=== PATIENT | female | born 1995 | race African-American/Black ===

== ENCOUNTER 2016-07-20 02:44 | Inpatient (IN) ==
[2016-07-20] MEDS ORDERED: SODIUM CHLORIDE 0.9% 1,000 ML IV STA (02:53)
--- NOTE | 2016-07-20 02:58 | Emergency Department Note ---
Arrival - Arrival Chief Complaint: Overdose ED Nursing Triage Note: C/O Took 9 Tylenol #3 at 0145 because she was angry in an attempt to harm herself. Pt reports taking an overdose of medication in the past. Pt is 39 weeks and 6 days gestation- Is due to be induced on Sunday. Pt is AB2 Mode of Arrival: Stretcher Limitations: No Limitations Source: Patient Time Seen by Provider: 07/20/16 02:53 - History of Present Illness HPI Narrative: This 21-year-old black female with a term due for to have next week presents once again having taken overdose of a Tylenol product. This time she took 9 Tylenol 3's. It would seem she is taking these more out of anger towards her significant other than out of I does desire to kill herself. Her significant begin other has alienated her from her 2 other children by him, 4-year-old 1-year-old. She is concerned that the same will happen with this next delivery next week. She has no other complaints. Onset (ago): hour(s) (Patient presents 1 hour post incident) Date of Last Menstrual Period: MONICA July 28 2016 Allergies/Adverse Reactions: Allergies Allergy/AdvReac Type Severity Reaction Status Date / Time No Known Allergies Allergy Verified 06/21/16 17:49 Home Medications: Home Medications Medication Instructions Recorded Confirmed Type No Known Home Medications [No 06/04/16 07/20/16 History Known Home Medications] Review of System - Review of System 12 point system: reviewed and no additional remarkable complaints except as stated - Review of System Constitutional: Present: as per HPI Psychiatric: Present: as per HPI Medical,Surgical,& Family Hx - Medical History Cardio: History of: Hypertension (CHRONIC.) Neurology: History of: Seizures (2010) Genitourinary: History of: Problems (miscarriage of twins) Hematology: No history of: Blood Transfusion Reaction Other: No history of: Anesthesia Reactions, Anaphylaxis, Cancer, Eczema, HIV - Surgical History Abdominal Surgeries: Patient denies: Abdominal Surgery Reproductive Surgeries: Surgical HX of;: Section Patient denies;: Hysterectomy, Tubal Ligation - Family History Family History: Reports;: Family Heart Disease (UNCLE- OPEN HEART SURGERY), Family Hypertension (MOM, DAD, UNCLE, AUNT) Denies;: Family Anesthesia Reaction, Family Cancer, Family Diabetes, Family Psychiatric Problems, Family Stroke - Social History Smoking Status: Never smoker Frequency of Alcohol Use: None Type of Drug Use: None Exam Physical Examination: GENERAL: Well developed, well nourished term black female in no acute distress. HEENT: Normocephalic. No trauma. Moist mucous membranes. EOMI. PERRLA. ENT NML NECK: Supple. No adenopathy. CARDIAC: Regular. No murmurs. Heart rate 80 CHEST: Clear to auscultation. No respiratory distress. O2 sat 90% ABDOMEN: Soft. Nontender. With full pelvis of term . Distant sounds bowel sounds. EXTREMITIES: No trauma. Normal ROM. No pedal edema. SKIN: No diaphoresis. No rash. NEURO: Alert. No focal deficits. Vital Signs: Vital Signs Temperature 98.2 F 07/20/16 02:46 Pulse Rate 88 07/20/16 02:46 Respiratory Rate 16 07/20/16 02:46 Blood Pressure 135/86 07/20/16 02:46 O2 Sat by Pulse Oximetry 100 07/20/16 02:46 Course - Reevaluation(s) Reevaluation #1: Advised need for hospitalization for observation. - Consultations Consultation #1: Discussed with Dr. Tejeda who will admit for further evaluation treatment peer Results - Labs CBC & BMP: 07/20/16 02:50 07/20/16 02:50 Labs: I have reviewed the laboratory and noted the low hematocrit, low potassium, and therapeutic acetaminophen level. - Impressions EKG sinus rhythm at 90 with normal MT interval and QRS duration. Normal ST segments. Normal EKG. Disposition Clinical Impression: Tylenol 3 overdose, Term Case discussed with: patient Disposition: Still a Patient Condition: Stable Time of Disposition: 04:07
[2016-07-20 03:00] LABS: Basophils % 0.1 % (0.0-0.8); Eosinophils # 0.1 10*3/uL (0.0-0.87); Eosinophils % 0.7 % (0.00-10.9); Hematocrit 29.3 VOL% (35.7-47.0); Hemoglobin 10.4 GM/DL (12.0-16.0); Immature Granulocytes % 0.7 %; Immature Granulocytes Absolute 0.08 #; Lymphocytes # 1.9 10*3/uL (1.4-4.0); Lymphocytes % 17.2 % (21.3-54.2); Mean Corpuscular HGB Conc 35.5 GM/DL (32-36); Mean Corpuscular Hemoglobin 30 PG (27-34); Mean Platelet Volume 11.1 FL (9.6-12.0); Monocytes # 0.6 10*3/uL (0.11-0.8); Monocytes % 5.4 % (1.7-12.7); Neutrophils # 8.4 10*3/uL (1.4-7.4); Neutrophils % 75.9 % (38.7-73.9); Platelet Count 151 T/CUMM (130-400); Red Blood Count 3.49 MC/CUMM (3.8-5.5)
[2016-07-20 03:17] LABS: PT Patient Result 10.4 SECS; Partial Thromboplastin Time 24.3 SECS (0-40)
[2016-07-20 03:21] LABS: Alanine Aminotransferase 9 U/L (13-56); Albumin 3.1 G/DL (3.4-5.0); Alkaline Phosphatase 196 U/L (45-117); Aspartate Amino Transferase 11 U/L (0-37); Bilirubin,Total < 0.39 MG/DL (0.2-1.0); Blood Urea Nitrogen 4 MG/DL (7-18); Calcium 8.5 MG/DL (8.5-10.1); Glucose 99 MG/DL (74-106); Osmolality,Calculated 275.4 MOS/KG (273-304); Potassium 3.3 MMOL/L (3.5-5.1); Sodium 140 MMOL/L (136-145); Total Protein 6.6 G/DL (6.4-8.3)
[2016-07-20 03:33] LABS: Apearance,Urine Slightly Hazy (Clear); Bacteria,Urine Few /HPF (Few); Bilirubin,Urine Negative (Negative); Blood, Urine Negative (Negative); Glucose,Urine (UA) Negative (Negative); Ketones,Urine 5 mg/dL (Negative); Nitrite,Urine Negative (Negative); Protein,Urine Negative; RBC,Urine 6 /HPF (0-4); Squamous Epithelial Cell,Urine Occasional /HPF (0-10); Urine Color Yellow (Yellow); Urine Specific Gravity 1.005 (1.001-1.035); Urine Urobilinogen < 2.0 EU/DL (0.2-1.0); WBC,Urine 103 /HPF (0-6)
[2016-07-20 03:45] LABS: Barbiturates Screen,Urine Negative (Negative); Benzodiazepines Screen,Urine Negative (Negative); Cannabinoid Screen,Urine Negative (Negative); Opiate Screen,Urine Positive (Negative); Phencyclidine Screen,Urine Negative (Negative)
[2016-07-20] MEDS ORDERED: POTASSIUM BICARB EFFERVESCENT 25 MEQ TABLET PO ONE ×2 (03:49→05:34)
[2016-07-20] MEDS ORDERED: AMOXICILLIN 500 MG CAPSULE PO STA (03:49)
[2016-07-20] MEDS ORDERED: LACTATED RINGERS 1,000 ML IV SCH (07:00)
--- NOTE | 2016-07-20 07:54 | Ultrasound Report ---
US OB biophys profile Indication: Tylenol overdose. Comparison: None. Technique: Using transcutaneous probe, routine biophysical profile was performed. Ultrasound images were captured and stored. Biophysical variables including breathing, gross body movements, tone, and qualitative amniotic fluid volume scored. Findings: Each of the above physical variables were graded at +2 for a total of +8. The fetus lies in vertex position. Heart activity is present with a heart rate of 140 beats per minute. The amniotic fluid index is 12.54cm. Impression: 1. biophysical profile score 8; normal with low risk for chronic asphyxia. 07/20/2016 7:51 AM PROCEDURE INTERPRETED AT [facility] DEPARTMENT OF RADIOLOGY Final Report Signed by: Dr. Buzz Silver
--- NOTE | 2016-07-20 07:56 | Ultrasound Report ---
US OB >= 14 weeks fetus Indication: Tylenol overdose Comparison: biophysical profile performed same date no other ovary ultrasounds are available for comparison from this gestation. Technique: Using a transabdominal probe, multiple grayscale, color Doppler, and spectral Doppler images of the uterus and bilateral ovaries were captured and stored. Findings: Single vertex fetus is demonstrated. heart rate is 124 bpm. Amniotic fluid index is 10.8 cm. Placenta lies posteriorly. Measurements of biparietal diameter 36 weeks 1 day, head circumference 37 weeks 0 days, abdominal circumference 34 weeks 6 days, and femur length 36 weeks 4 days results in estimated composite gestational age of 36 weeks 1 day. Estimated weight is 2741 g with growth percentile 6.2%. Ratios appear within normal limits. Maternal ovaries are not identified. Impression: 1. Single fetus is present as detailed. 07/20/2016 7:52 AM PROCEDURE INTERPRETED AT [facility] DEPARTMENT OF RADIOLOGY Final Report Signed by: Dr. Buzz Silver
--- NOTE | 2016-07-20 09:44 | OB/GYN Progress Note ---
Assessment and Plan (1) Term Status: Acute Current Visit: Yes (2) First known suicide attempt Status: Acute Assessment and plan: Suicide watch Current Visit: Yes HAND ZIPPER TRIMMER - PN: Subj Interval history: Stable at present. Patient states that she was sad because she does not have her son at this time. She states that the father the baby has legal custody of her child and does not allow her to see him as she desires. The patient states that the baby will be 1-year-old on August 15 and she started thinking about all tthat and it made her sad and therefore she took the overdose. Exam HAND ZIPPER TRIMMER - Constitutional Vitals: Vital Signs Temp Pulse Pulse Resp BP BP Pulse Ox 07/20/16 05:45 97.0 F L 65 20 141/90 07/20/16 05:15 65 20 112/68 100 07/20/16 05:00 74 18 131/68 99 07/20/16 04:30 81 18 127/62 99 07/20/16 04:00 75 16 116/68 98 07/20/16 03:30 84 20 111/66 100 07/20/16 03:00 83 18 127/77 100 07/20/16 02:46 98.2 F 88 16 135/86 100 Pulse Ox 07/20/16 05:45 100 07/20/16 05:15 07/20/16 05:00 07/20/16 04:30 07/20/16 04:00 07/20/16 03:30 07/20/16 03:00 07/20/16 02:46 - Antepartum / Post Antepartum Exam Cervix - Dilatation: FT Breast: bilateral: normal Abdomen obstetrics: Present: bowel sounds normal Vagina: Present: normal moisture Uterus exam: Present: enlarged Anus/Rectum: Present: normal perianal skin - Head Head exam: Present: normocephalic - Respiratory Respiratory exam: Present: clear to auscultation bilaterally - Cardiovascular Cardiovascular exam: Present: regular rate and rhythm - GI/Abdominal GI/Abdominal exam: Present: normal bowel sounds, soft - Extremities Exam Extremities exam: Present: normal inspection - Back Exam Back exam: Present: normal inspection - Neurological Exam Neurological exam: Present: alert, oriented X3 - Psychiatric Psychiatric exam: Present: normal affect, normal mood - Skin Skin exam: Present: normal color, warm Results - Labs CBC & BMP: 07/20/16 02:50 07/20/16 02:50
--- NOTE | 2016-07-20 09:55 | EKG Report ---
Stationary ECG Study [facility] ER Test Date: 07/20/2016 2:57:47 AM Pat Name: JEFRY MCKINLEY Department: Room: 157 Gender: F Nuclear Technologist: [place] : 1995 Requested by: Maikel Villafana Order Number: [id number] Reading MD: JASMEET VÁSQUEZ Intervals [place] Rate: 91 P: 72 IA: 174 QRS: 28 QRSD: 77 T: 11 QT: 332 QTc: 381 Interpretive Statements SINUS RHYTHM Electronically Signed On 07-21-16 08:47:40 CDT by JASMEET VÁSQUEZ [email or web address]
[2016-07-20] MEDS: AMOXICILLIN 500 MG CAPSULE PO SCH ×3 (10:41→20:40)
[2016-07-21 06:56] LABS: Basophils % 0.2 % (0.0-0.8); Eosinophils # 0.1 10*3/uL (0.0-0.87); Eosinophils % 1.3 % (0.00-10.9); Hematocrit 27.2 VOL% (35.7-47.0); Hemoglobin 9.4 GM/DL (12.0-16.0); Immature Granulocytes % 0.5 %; Immature Granulocytes Absolute 0.04 #; Lymphocytes # 1.6 10*3/uL (1.4-4.0); Lymphocytes % 19.4 % (21.3-54.2); Mean Corpuscular HGB Conc 34.6 GM/DL (32-36); Mean Corpuscular Hemoglobin 29 PG (27-34); Mean Corpuscular Volume 84.7 FL (87-102); Mean Platelet Volume 11.7 FL (9.6-12.0); Monocytes # 0.6 10*3/uL (0.11-0.8); Monocytes % 7.6 % (1.7-12.7); Neutrophils # 5.8 10*3/uL (1.4-7.4); Platelet Count 149 T/CUMM (130-400); Red Blood Count 3.21 MC/CUMM (3.8-5.5); Red Cell Distribution Width 14.1 % (9.3-17.3); White Blood Count 8.2 T/CUMM (4-12)
[2016-07-21] MEDS: AMOXICILLIN 500 MG CAPSULE PO SCH ×3 (09:18→21:09)
--- NOTE | 2016-07-21 14:24 | Progress Note ---
Family Medicine PN Sub Interval history: Second hospitalization day. Patient is in great spirits, alert, no complaints of shortness of breath chest pain palpitations, and no suicidal thoughts. Abdomen soft positive heart tones NST is reactive Extremities well within normal limits neurologic grossly intact Assessment plan we will observe over the weekend and possible possibly plan on her delivery on Sunday the fourth. Exam (Progress Note) - Constitutional Vitals: Period Temp Pulse Resp BP Sys/Betancourt Pulse Ox Last 24 Hr 97.8 F-98.9 F 66-76 18-20 121-133/71-76 96-99 Results - Labs CBC & BMP: 07/21/16 06:24 07/20/16 02:50
[2016-07-21] MEDS: ONDANSETRON 4 MG TABLET PO PRN ×2 (20:01→23:56)
[2016-07-22] MEDS ORDERED: LACTATED RINGERS 500 ML IV ONE (02:15)
[2016-07-22] MEDS: LACTATED RINGERS 1,000 ML IV SCH (02:45)
[2016-07-22] MEDS ORDERED: MEPERIDINE 50 MG/1 ML VIAL ONE (02:54)
[2016-07-22] MEDS ORDERED: MEPERIDINE 50 MG/1 ML VIAL IV ONE (03:00)
[2016-07-22] MEDS: ONDANSETRON 4 MG/2 ML VIAL IV PRN (03:05)
[2016-07-22] MEDS: AMOXICILLIN 500 MG CAPSULE PO SCH ×3 (09:45→21:13)
--- NOTE | 2016-07-22 11:40 | Progress Note ---
Family Medicine PN Sub Interval history: Third day in the hospital secondary to a failed suicide attempt. Patient is doing great spirits a lot better fetus is active cervix is has not changed. NSTs have been very reactive. We will plan on a repeat section on Sunday Exam (Progress Note) - Constitutional Vitals: Period Temp Pulse Resp BP Sys/Betancourt Pulse Ox Last 24 Hr 97.3 F-98.9 F 66-78 18-22 116-145/73-94 97-100 Results - Labs CBC & BMP: 07/21/16 06:24 07/20/16 02:50
[2016-07-23] MEDS: AMOXICILLIN 500 MG CAPSULE PO SCH ×3 (08:42→21:56)
--- NOTE | 2016-07-23 09:33 | OB/GYN Progress Note ---
Assessment and Plan (1) First known suicide attempt Status: Acute Current Visit: Yes (2) Previous section Status: Acute Assessment and plan: Pt stable this morning. Plan for repeat section in the morning Current Visit: No (3) Term Status: Acute Current Visit: Yes SENIOR PROJECT COORDINATOR - PN: Subj Interval history: Pt states that she feels ok this morning. Ready to be delivered. Happy that it is tomorrow. Exam SENIOR PROJECT COORDINATOR - Constitutional Vitals: Vital Signs Temp Pulse Resp BP Pulse Ox 07/23/16 08:00 98.5 F 61 18 122/83 100 07/23/16 06:00 18 07/23/16 04:00 97.7 F 68 20 123/78 99 07/23/16 00:00 97.7 F 62 20 133/76 98 07/22/16 19:40 97.7 F 67 20 129/75 96 07/22/16 15:48 97.7 F 79 18 127/78 99 07/22/16 11:54 97.6 F 66 18 111/60 100 General appearance: no acute distress - Head Head exam: Present: normal inspection, normocephalic - Eye Eye exam: Present: EOMI Pupils: Present: REILLY - GI/Abdominal GI/Abdominal exam: Present: other (Gravid. FHTs reactive) - Psychiatric Psychiatric exam: Present: normal affect, normal mood Results - Labs CBC & BMP: 07/21/16 06:24 07/20/16 02:50
[2016-07-23] MEDS ORDERED: MEPERIDINE 50 MG/1 ML VIAL IV ONE (20:03)
[2016-07-23] MEDS ORDERED: ZALEPLON 5 MG CAPSULE PO PRN (20:03)
[2016-07-23] MEDS: ONDANSETRON 4 MG/2 ML VIAL IV PRN (20:05)
[2016-07-23] MEDS: TERCONAZOLE 0.4% VAG CREAM 45 GM TUBE VAG SCH (21:56)
[2016-07-23] MEDS: ACETAMINOPHEN 325 MG TABLET PO PRN (23:40)
[2016-07-24] MEDS: LACTATED RINGERS 1,000 ML IV SCH ×5 (00:30→11:08)
[2016-07-24] MEDS: ACETAMINOPHEN 325 MG TABLET PO PRN (05:33)
[2016-07-24 06:16] LABS: Basophils % 0.1 % (0.0-0.8); Eosinophils # 0.1 10*3/uL (0.0-0.87); Hematocrit 26.9 VOL% (35.7-47.0); Hemoglobin 9.3 GM/DL (12.0-16.0); Immature Granulocytes % 1.1 %; Immature Granulocytes Absolute 0.12 #; Lymphocytes # 1.6 10*3/uL (1.4-4.0); Lymphocytes % 15.2 % (21.3-54.2); Mean Corpuscular HGB Conc 34.6 GM/DL (32-36); Mean Corpuscular Hemoglobin 29 PG (27-34); Mean Corpuscular Volume 85.1 FL (87-102); Mean Platelet Volume 11.6 FL (9.6-12.0); Monocytes # 0.8 10*3/uL (0.11-0.8); Monocytes % 7.7 % (1.7-12.7); Neutrophils # 7.8 10*3/uL (1.4-7.4); Neutrophils % 74.9 % (38.7-73.9); Platelet Count 143 T/CUMM (130-400); Red Blood Count 3.16 MC/CUMM (3.8-5.5); Red Cell Distribution Width 13.8 % (9.3-17.3); White Blood Count 10.5 T/CUMM (4-12)
[2016-07-24 06:39] LABS: Calcium 8.3 MG/DL (8.5-10.1); Osmolality,Calculated 273.4 MOS/KG (273-304); Potassium 3.8 MMOL/L (3.5-5.1)
[2016-07-24] MEDS ORDERED: OXYTOCIN 10 UNIT/ML VIAL IM PRN (08:51)
[2016-07-24] MEDS ORDERED: OXYTOCIN/LR 30 UNIT/1,000 ML BAG IV PRN (08:51)
[2016-07-24] MEDS ORDERED: ceFAZolin 2,000 MG in PREMIX 1 EACH IV PRN (08:51)
[2016-07-24] MEDS ORDERED: FAMOTIDINE 20 MG/2 ML VIAL IV ONE (09:01)
[2016-07-24] MEDS ORDERED: CITRIC ACID/SODIUM CITRATE 30 ML UDCUP PO ONE (09:01)
[2016-07-24] MEDS ORDERED: PHENYLEPHRINE 1 MG/10 ML SYRINGE IV ONE (09:25)
[2016-07-24] MEDS ORDERED: ONDANSETRON 4 MG/2 ML VIAL ONE (09:25)
[2016-07-24] MEDS ORDERED: OXYTOCIN/LR 20 UNIT/1,000 ML BAG IV ONE ×2 (10:52→13:25)
[2016-07-24] MEDS ORDERED: MORPHINE 10 MG/10 ML VIAL ONE (10:53)
[2016-07-24] MEDS ORDERED: LACTATED RINGERS 1,000 ML IV ONE (10:53)
--- NOTE | 2016-07-24 10:54 | Operative Note ---
Date of procedure: 07/24/16 Procedure: Preoperative diagnosis: Repeat section, attempted suicide, 39+ weeks Postoperative diagnosis: Same Anesthesia:[] Regional anesthesia Estimated blood loss: [] 300 cc Surgeon: Dr. Tejeda Findings: [] Male infant, Apgars are pending, weight is pending, cord blood and cord gas was obtained, delivery time is also pending. Complications: No complication came out screaming ,yelling ,believe Apgars to be greater than 8 at 1 minute and 9 at 5 minutes Procedure: Low transverse section The patient was taken to the operating suite heart tones were obtained prior to and after regional anesthesia was obtained. She was placed in supine position her abdomen was prepped and draped in usual manner for major abdominal surgery. Through an abdominal incision the skin, subcutaneous, fascial layer and peritoneal the abdomen was entered. The bladder flap was created and a low transverse incision was made.. Fluid was clear and normal amount X, Apgars, the placenta was delivered and sent to lab for further evaluation. Injected with intrauterine Pitocin. The first layer of the uterus was closed with #1 Vicryl in a continuous locking manner. Close to imbricate the first layer with #1 Vicryl. The peritoneum was approximated with #2-0 Vicryl.[] All the last sponges and instruments were accounted for -2.) #2-0 Vicryl. Fascia was approximated with #0-0 Maxon.. The skin was approximated with daniella. She tolerated procedure well and was taken to recovery room in stable condition. Surgeon / Physician: Mina Tejeda Results - Labs CBC & BMP: 07/24/16 04:26 07/24/16 04:26 Discharge Plan - Discharge Medications No Action No Known Home Medications [No Known Home Medications] - Follow Up or Referral - Forms/Instructions
--- NOTE | 2016-07-24 10:58 | Anesthesia Post-Op ---
Anesthesia Post OP - Post Ansesthetic Evaluation Patient seen in post op: Yes Resp: within normal limits CV: within normal limits Mental: within normal limits Temp: within normal limits [id number]-[id number]-Dyfbvpaed: within normal limits Nausea and Vomiting: within normal limits Pain: within normal limits
[2016-07-24 11:03] LABS: Cord Venous Blood HCO3 21.4 MMOL/L; Cord Venous Blood PCO2 52.5 MMHG; Cord Venous Blood PO2 21.9
[2016-07-24 11:06] LABS: Apearance,Urine CLEAR (Clear); Bilirubin,Urine Negative (Negative); Blood, Urine Small mg/dL (Negative); Glucose,Urine (UA) Negative (Negative); Hyaline Casts,Urine 1 /LPF (0-3); Ketones,Urine Negative (Negative); Nitrite,Urine Negative (Negative); Protein,Urine Negative; RBC,Urine <1 /HPF (0-4); Squamous Epithelial Cell,Urine Occasional /HPF (0-10); Urine Color Colorless (Yellow); Urine Specific Gravity 1.004 (1.001-1.035); Urine Urobilinogen < 2.0 EU/DL (0.2-1.0); WBC,Urine 2 /HPF (0-6)
[2016-07-24] MEDS: AMOXICILLIN 500 MG CAPSULE PO SCH ×2 (11:06→14:26)
[2016-07-24] MEDS ORDERED: RHO(D) IMMUNE GLOBULIN 300 MCG SYRINGE IM ONE (13:25)
[2016-07-24] MEDS ORDERED: SIMETHICONE CHEW 80 MG TABLET PO PRN (13:25)
[2016-07-24] MEDS: ONDANSETRON 4 MG/2 ML VIAL IV PRN (14:10)
[2016-07-24] MEDS ORDERED: diphenhydrAMINE 50 MG/1 ML VIAL ONE (16:31)
[2016-07-24] MEDS ORDERED: PROMETHAZINE 25 MG/1 ML VIAL IM PRN (16:36)
[2016-07-24] MEDS ORDERED: diphenhydrAMINE 50 MG/1 ML VIAL IV PRN (16:37)
[2016-07-24 19:54] LABS: Hematocrit 26.9 VOL% (35.7-47.0); Hemoglobin 9.2 GM/DL (12.0-16.0)
[2016-07-24] MEDS: TERCONAZOLE 0.4% VAG CREAM 45 GM TUBE VAG SCH (22:40)
[2016-07-25] MEDS: LACTATED RINGERS 1,000 ML IV SCH
[2016-07-25] MEDS: DOCUSATE SODIUM 100 MG CAPSULE PO SCH ×3 (00:38→21:15)
[2016-07-25 06:12] LABS: Basophils % 0.2 % (0.0-0.8); Eosinophils # 0.1 10*3/uL (0.0-0.87); Eosinophils % 0.5 % (0.00-10.9); Hematocrit 25.6 VOL% (35.7-47.0); Hemoglobin 8.8 GM/DL (12.0-16.0); Immature Granulocytes % 0.9 %; Lymphocytes # 1.1 10*3/uL (1.4-4.0); Lymphocytes % 9.5 % (21.3-54.2); Mean Corpuscular HGB Conc 34.4 GM/DL (32-36); Mean Corpuscular Hemoglobin 29 PG (27-34); Mean Platelet Volume 12.1 FL (9.6-12.0); Monocytes % 8.4 % (1.7-12.7); Neutrophils # 9.5 10*3/uL (1.4-7.4); Neutrophils % 80.5 % (38.7-73.9); Platelet Count 135 T/CUMM (130-400); Red Blood Count 3.01 MC/CUMM (3.8-5.5); White Blood Count 11.7 T/CUMM (4-12)
[2016-07-25] MEDS: MULTIVITAMIN (PRENATAL) TABLET PO SCH (09:00)
[2016-07-25] MEDS: FERROUS SULFATE 325 MG TABLET PO SCH ×3 (09:00→21:15)
--- NOTE | 2016-07-25 10:11 | OB/GYN Progress Note ---
Assessment and Plan (1) Term Status: Acute Current Visit: Yes (2) First known suicide attempt Status: Acute Assessment and plan: Suicide watch Current Visit: Yes (3) Status post repeat low transverse section Status: Acute Assessment and plan: Initiate routine postop orders. Current Visit: Yes CORRECTIONAL CASE MANAGER - PN: Subj Interval history: Stable with no complaints. Bonding well with infant Exam CORRECTIONAL CASE MANAGER - Constitutional Vitals: Vital Signs Temp Pulse Resp BP Pulse Ox Pulse Ox 07/25/16 07:18 98.4 F 81 18 128/60 99 07/25/16 06:00 18 07/25/16 04:00 97.3 F L 74 18 122/62 100 07/25/16 00:00 98.7 F 75 18 125/71 99 07/24/16 20:00 97.7 F 66 18 137/77 100 07/24/16 16:30 68 18 131/85 98 07/24/16 15:30 97.7 F 62 18 128/76 98 07/24/16 14:30 61 20 128/70 98 07/24/16 14:00 62 20 127/76 99 07/24/16 13:30 97.4 F L 61 20 138/78 98 General appearance: normal weight, no acute distress - Antepartum / Post Post Exam Breast: bilateral: normal Abdomen obstetrics: Present: bowel sounds normal Uterus exam: Present: enlarged Adnexa: bilateral: normal - Gyencological / Post Surgical Post Surgical Exam Lungs: bilateral: normal Chest: Normal S1, Normal S2 Extremities CORRECTIONAL CASE MANAGER: Present: normal Abdomen obstetrics progress note: Present: normal appearance Incision OB: Present: normal, intact - Head Head exam: Present: normal inspection - Respiratory Respiratory exam: Present: clear to auscultation bilaterally - Cardiovascular Cardiovascular exam: Present: regular rate and rhythm - GI/Abdominal GI/Abdominal exam: Present: normal bowel sounds, soft - Extremities Exam Extremities exam: Present: normal inspection - Neurological Exam Neurological exam: Present: alert, oriented X3 - Psychiatric Psychiatric exam: Present: normal affect, normal mood - Skin Skin exam: Present: normal color, warm Results - Labs CBC & BMP: 07/25/16 04:47 07/24/16 04:26
[2016-07-25] MEDS: IBUPROFEN 800 MG TABLET PO PRN ×2 (11:10→23:30)
--- NOTE | 2016-07-25 13:23 | Pathology Report from [facility] ---
[facility] ACCESSION # : [id number] PATIENT NAME : Jefry Nevarez ORDERING DR : CATALINA VÁSQUEZ MD CLINICAL HX: IUP @ 39.3 wejackie - Suicide attempt with Tylenol #3 - Repeat C- Section POST-OP DX: Same SPECIMEN INFO: Placenta GROSS DESCRIPTION: Received fresh labeled JEFRY NEVAREZ & PLACENTA is a 408 gm placenta measuring 17.1 x 14.6 x 2.1 cm. The membranes are pink desir and translucent. The umbilical cord is pericentrally inserted, contains three vessels and measures 14.2 cm. The surface is blue dee. The maternal surface is hemorrhagic with moderately disrupted cotyledons and adherent clotted blood. Multiple scattered calcifications are present. Sectioning reveals an area of thick fibrin measuring up to 1 cm. Sections submitted A- membranes and cord, B- and maternal surfaces. DIAGNOSIS FOR JEFRY NEVAREZ: Three vessel umbilical cord.Unremarkable placental membranes.Third trimester placental chorionic villi with focal placental infarction. COLLECTED DATE: 07/24/2016 [facility] REPORT DATE: 07/25/2016 ELECTRONICALLY SIGNED BY: Everardo Galvan M.D. 07/25/2016 - 10:00:13 GERALDINE
[2016-07-25] MEDS ORDERED: HYDROCORTISONE 2.5% RECTAL CREAM 30 GM TUBE TOP PRN (15:46)
[2016-07-25] MEDS ORDERED: WITCH HAZEL PADS 100/JAR TOP PRN (15:46)
[2016-07-25] MEDS: MAGNESIUM HYDROXIDE SUSP 30 ML UDCUP PO PRN ×2 (15:54→22:21)
[2016-07-25] MEDS: TERCONAZOLE 0.4% VAG CREAM 45 GM TUBE VAG SCH (22:00)
[2016-07-26] MEDS: DOCUSATE SODIUM 100 MG CAPSULE PO SCH (08:40)
[2016-07-26] MEDS: FERROUS SULFATE 325 MG TABLET PO SCH ×2 (08:40→16:40)
[2016-07-26 11:47] VITALS: BP 140/76
[2016-07-26] MEDS: MULTIVITAMIN (PRENATAL) TABLET PO SCH (12:27)
[2016-07-26] MEDS: IBUPROFEN 800 MG TABLET PO PRN (14:01)
--- NOTE | 2016-07-26 14:57 | Discharge Summary ---
Hospital Course - Hospital Course Hospital Course: The patient presented to the labor department complaining of drug overdose intentionally. The patient stated the reason for her incident was the fact that she was tired of being , she was sad because of some family issues , but patient denied a true attempt to end her life. Social service was consulted regarding the above. The patient subsequently had a repeat section at 39 weeks and delivered a viable with no complications. She has followed a normal postoperative course and she is doing well. Her mood is good she is bonding well with her she states that she is happy now that the is over. The patient desires to go home. Her incision is well approximated without signs of infection. She is voiding without difficulty. Her bowel sounds are positive and she has had normal bowel movement. Her vital signs and lab values are stable. Bowel sounds are positive she has had a normal bowel movement. She will be discharged to home with social service consult and a follow-up appointment in our office. Diagnosis - Discharge Diagnosis (1) Term Status: Acute (2) First known suicide attempt Status: Acute (3) Status post repeat low transverse section Status: Acute Specialty Discharge - Follow Up or Referrals Follow up with: Mina Tejeda MD [Physician] - 08/14/16 10:30 am Discharge Plan - Discharge Data Disposition: Disch To Home/Self Care Condition at Discharge: Stable Discharge Diet: advance to your usual diet Activity: resume usual activities as tolerated Hygiene: may shower Weight Bearing at Discharge: partial weight bearing Driving: no restrictions Contact your physician if you experience:: fever over 101, pain uncontrolled by pain medications - Discharge Medications New Ferrous Sulfate Tab [Feosol Original Tab] 325 mg PO TID #60 tablet Ibuprofen Tab [Motrin Tab] 800 mg PO Q8H PRN #30 tablet PRN Reason: Pain Severe (8-10) HYDROcodone/ACETAMIN 5-325 [[place] 5-325] 2 tablet PO Q6H PRN #30 tablet PRN Reason: Pain Severe (8-10) No Action No Known Home Medications [No Known Home Medications] - Follow Up or Referral Follow Up: Mina Tejeda MD [Physician] - 08/14/16 10:30 am - Forms/Instructions Instructions: Section (DC), Perineal Care (DC), Bleeding (DC) Exam - Constitutional Vitals: Period Temp Pulse Resp BP Sys/Betancourt Pulse Ox Last 24 Hr 96.9 F-98.6 F 69-88 18-20 115-153/69-92 95-99 General appearance: no acute distress - Respiratory Respiratory exam: Present: clear to auscultation bilaterally - Cardiovascular Cardiovascular exam: Present: regular rate and rhythm - GI/Abdominal GI/Abdominal exam: Present: normal bowel sounds, soft - Extremities Exam Extremities exam: Present: normal inspection - Back Exam Back exam: Present: normal inspection - Neurological Exam Neurological exam: Present: alert, oriented X3 - Psychiatric Psychiatric exam: Present: normal affect, normal mood - Skin Skin exam: Present: normal color, warm DS: Provider Date of admission: 07/24/16 09:55 Primary care physician: . No PCP Attending physician on admission: Mina Tejdea MD Consults: 07/20/16 07:01 Consult to Case Mgmt/Social Srvs [CONS] Routine Reason for Case Mgmt/Social Srvs: Other Consult Comment: OVERDOSE ON TYLENOL #3 D/T BEING ANGRY AT SIGNIFICANT OTHER 07/24/16 09:01 Consult to Anesthesiology [CONS] Routine Consulting Provider: Reason for Anesthesiology: Pre-op Clearance 07/24/16 09:55 Consult to Anesthesiology [CONS] Routine Consulting Provider: Reason for Anesthesiology: Pre-op Clearance 07/24/16 13:25 Consult to Spectroscopist [CONS] Routine Consult Spectroscopist: Breast Feeding 07/24/16 17:26 Consult to Case Mgmt/Social Srvs [CONS] Routine Reason for Case Mgmt/Social Srvs: Other Consult Comment: pt delivered infant Discharging clinician: Kamla Vargas CNM Expected date of discharge: 07/26/16
[2016-07-26] MEDS ORDERED: DIPH/TET/ACEL PERT BOOSTER VACCINE 0.5 ML VIAL IM ONE ×2 (17:47→17:49)
== END 2016-07-26 19:05 | disposition home or self-care (01) | DRG 540 ==
LOC: N.ED 02:44 → INTOOBSV 04:07 → N.EDINP 04:07 → N.LD 05:12 → N.OB 06:42 → N.LD 07-24 07:20 → N.OB 07-24 13:30
PROVIDERS: ADMIT Obstetrics & Gynecology; ATTEND Obstetrics & Gynecology
PROC: LDCSECT (ICD-10-PCS; 2016-07-24 07:30)

== ENCOUNTER 2021-01-17 09:53 | Inpatient (IN) ==
[2021-01-17] MEDS ORDERED: ceFAZolin 2,000 MG/50 ML DUPLEX IV ONE (10:01)
[2021-01-17] MEDS ORDERED: FAMOTIDINE 20 MG/2 ML VIAL IV ONE (10:01)
[2021-01-17] MEDS ORDERED: CITRIC ACID/SODIUM CITRATE 30 ML UDCUP PO ONE (10:01)
[2021-01-17] MEDS ORDERED: OXYTOCIN 10 UNIT/ML VIAL IM ONE (10:03)
[2021-01-17] MEDS ORDERED: OXYTOCIN/LR 30 UNIT/1,000 ML BAG IV ONE (10:04)
[2021-01-17] MEDS ORDERED: LACTATED RINGERS 1,000 ML IV ONE ×2 (10:09→14:03)
[2021-01-17] MEDS: LACTATED RINGERS 1,000 ML IV PRN ×2 (10:27→17:22)
[2021-01-17 11:02] LABS: Basophils % 0.2 % (0.0-0.8); Eosinophils # 0.2 10*3/uL (0.0-0.87); Eosinophils % 1.5 % (0.00-10.9); Hematocrit 28.6 VOL% (35.7-47.0); Hemoglobin 9.3 GM/DL (12.0-16.0); Immature Granulocytes % 0.6 %; Immature Granulocytes Absolute 0.07 #; Lymphocytes % 27.3 % (21.3-54.2); Mean Corpuscular HGB Conc 32.5 GM/DL (32-36); Mean Corpuscular Volume 85.6 FL (87-102); Mean Platelet Volume 10.4 FL (9.6-12.0); Monocytes % 6.9 % (1.7-12.7); Neutrophils % 63.5 % (38.7-73.9); Platelet Count 228 T/CUMM (130-400); Red Blood Count 3.34 MC/CUMM (3.8-5.5); Red Cell Distribution Width 14.4 % (9.3-17.3); White Blood Count 10.9 T/CUMM (4-12)
[2021-01-17] MEDS ORDERED: BUPIVACAINE SPINAL 0.75% 2 ML AMP SPINAL ONE (12:56)
[2021-01-17] MEDS ORDERED: ONDANSETRON 4 MG/2 ML VIAL ONE (12:57)
[2021-01-17] MEDS ORDERED: DEXAMETHASONE 4 MG/1 ML VIAL ONE (13:01)
[2021-01-17] MEDS ORDERED: PHENYLEPHRINE 1 MG/10 ML SYRINGE IV ONE (14:01)
[2021-01-17] MEDS ORDERED: ACETAMINOPHEN INJ 1,000 MG/100 ML VIAL IV ONE (14:16)
[2021-01-17] MEDS ORDERED: OXYTOCIN/LR 20 UNIT/1,000 ML BAG IV ONE (14:57)
[2021-01-17] MEDS ORDERED: ONDANSETRON 4 MG/2 ML VIAL IV PRN (14:57)
[2021-01-17] MEDS ORDERED: ACETAMINOPHEN 325 MG TABLET PO PRN (14:57)
[2021-01-17] MEDS ORDERED: SIMETHICONE CHEW 80 MG TABLET PO PRN (14:57)
[2021-01-17] MEDS ORDERED: RHO(D) IMMUNE GLOBULIN 300 MCG SYRINGE IM ONE (14:57)
[2021-01-17] MEDS ORDERED: LACTATED RINGERS 1,000 ML IV SCH (15:00)
[2021-01-17 15:01] LABS: Cord Arterial Blood HCO3 21.3 MMOL/L
[2021-01-17 15:04] LABS: Cord Venous Blood HCO3 21.8 MMOL/L; Cord Venous Blood PCO2 45.8 MMHG; Cord Venous Blood PO2 22.9
[2021-01-17 15:13] LABS: Bilirubin,Urine Negative (Negative); Blood, Urine Negative (Negative); Glucose,Urine (UA) Negative (Negative); Ketones,Urine 5 mg/dL (Negative); Mucus,Urine Occasional /LPF (Occasional); Nitrite,Urine Negative (Negative); Protein,Urine Negative; RBC,Urine 5 /HPF (0-4); Squamous Epithelial Cell,Urine Occasional /HPF (0-10); Urine Appearance CLEAR (Clear); Urine Color Yellow (Yellow); Urine Specific Gravity 1.014 (1.001-1.035); Urine Urobilinogen < 2.0 EU/DL (0.2-1.0)
[2021-01-17] MEDS ORDERED: PROMETHAZINE 25 MG/1 ML VIAL IM PRN (18:23)
[2021-01-17] MEDS ORDERED: PROMETHAZINE 25 MG/1 ML VIAL ONE (18:24)
[2021-01-17] MEDS ORDERED: ACETAMINOPHEN 500 MG TABLET PO SCH (20:00)
[2021-01-17] MEDS: DOCUSATE SODIUM 100 MG CAPSULE PO SCH (20:58)
[2021-01-17 21:45] LABS: Basophils % 0.1 % (0.0-0.8); Eosinophils % 0.1 % (0.00-10.9); Hematocrit 27.9 VOL% (35.7-47.0); Hemoglobin 9.3 GM/DL (12.0-16.0); Immature Granulocytes % 0.6 %; Immature Granulocytes Absolute 0.09 #; Lymphocytes # 1.6 10*3/uL (1.4-4.0); Lymphocytes % 10.6 % (21.3-54.2); Mean Corpuscular HGB Conc 33.3 GM/DL (32-36); Mean Corpuscular Volume 83.5 FL (87-102); Mean Platelet Volume 10.5 FL (9.6-12.0); Monocytes % 1.8 % (1.7-12.7); Neutrophils % 86.8 % (38.7-73.9); Platelet Count 213 T/CUMM (130-400); Red Blood Count 3.34 MC/CUMM (3.8-5.5); Red Cell Distribution Width 14.2 % (9.3-17.3)
[2021-01-18 05:25] LABS: Basophils % 0.1 % (0.0-0.8); Eosinophils % 0.1 % (0.00-10.9); Hematocrit 27.5 VOL% (35.7-47.0); Hemoglobin 8.9 GM/DL (12.0-16.0); Immature Granulocytes % 0.6 %; Immature Granulocytes Absolute 0.09 #; Lymphocytes # 2.5 10*3/uL (1.4-4.0); Lymphocytes % 17.9 % (21.3-54.2); Mean Corpuscular HGB Conc 32.4 GM/DL (32-36); Mean Corpuscular Volume 85.7 FL (87-102); Mean Platelet Volume 10.5 FL (9.6-12.0); Monocytes % 8.2 % (1.7-12.7); Neutrophils % 73.1 % (38.7-73.9); Platelet Count 197 T/CUMM (130-400); Red Blood Count 3.21 MC/CUMM (3.8-5.5); Red Cell Distribution Width 14.1 % (9.3-17.3); White Blood Count 14.1 T/CUMM (4-12)
[2021-01-18] MEDS: DOCUSATE SODIUM 100 MG CAPSULE PO SCH ×2 (10:18→21:08)
[2021-01-18] MEDS: MULTIVITAMIN (PRENATAL) TABLET PO SCH (10:18)
[2021-01-18] MEDS: FERROUS SULFATE 325 MG TABLET PO SCH ×3 (10:18→21:09)
[2021-01-18] MEDS: METOCLOPRAMIDE 10 MG TABLET PO SCH ×2 (10:18→17:41)
[2021-01-18] MEDS ORDERED: INFLUENZA VIRUS VACCINE 0.5 ML SYRINGE IM ONE (10:54)
[2021-01-18] MEDS: oxyCODONE/ACETAMINOPHEN 5-325 MG TABLET PO PRN ×2 (14:23→21:48)
[2021-01-18] MEDS: IBUPROFEN 800 MG TABLET PO PRN ×2 (14:24→21:49)
[2021-01-18] MEDS: MAGNESIUM HYDROXIDE SUSP 30 ML UDCUP PO PRN (21:09)
[2021-01-19] MEDS: METOCLOPRAMIDE 10 MG TABLET PO SCH ×2 (00:56→07:26)
[2021-01-19] MEDS: IBUPROFEN 800 MG TABLET PO PRN (05:48)
[2021-01-19] MEDS: oxyCODONE/ACETAMINOPHEN 5-325 MG TABLET PO PRN (05:49)
[2021-01-19] MEDS ORDERED: MAGNESIUM CITRATE 300 ML BOTTLE PO PRN (06:31)
[2021-01-19 08:12] VITALS: BP 138/79
[2021-01-19] MEDS: MULTIVITAMIN (PRENATAL) TABLET PO SCH (08:30)
[2021-01-19] MEDS: MAGNESIUM HYDROXIDE SUSP 30 ML UDCUP PO PRN (08:30)
[2021-01-19] MEDS: DOCUSATE SODIUM 100 MG CAPSULE PO SCH (08:32)
[2021-01-19] MEDS ORDERED: FERROUS SULFATE 325 MG TABLET PO SCH (09:00)
[2021-01-19] MEDS ORDERED: INFLUENZA VIRUS VACCINE 0.5 ML SYRINGE IM ONE (10:57)
== END 2021-01-19 13:33 | disposition home or self-care (01) | DRG 539 ==
LOC: N.LD 09:53 → N.OB 17:28
PROVIDERS: ADMIT Obstetrics & Gynecology; ATTEND Obstetrics & Gynecology